=== PATIENT | male | born 1930 | race Caucasian/White ===

== ENCOUNTER 2019-01-07 14:35 | Inpatient (IN) | payer MEDICARE, BC ==
[~2019-01-07] VITALS: Ht 185.4 cm; Wt 93.0 kg
--- NOTE | 2019-01-07 14:35 | NUR ---
IV LINE ESTABLISHED, LABS DRAWNED AND SENT TO LAB.
--- NOTE | 2019-01-07 14:35 | NUR ---
PT BIB [facility],BECAME UNRESPONSIVE AFTER GETTING INTO THE CAR AFTER HAVING LUNCH, PT ARRIVED ON CIPAP NOTED RESPIRATORY DISTRESS, RT AT BEDSIDE FOR POSSIBLE INTUBATION AND [facility], INCH VENT SET UP, DR. TILLMAN AT BEDSIDE FOR EVALUATION, HOOKED TO MONITOR, KEPT RESTED AND COMFORTABLE, WILL CONTINUE TO MONITOR.
--- NOTE | 2019-01-07 14:39 | NUR ---
ETOMIDATE 20MG AND ROCURONIUM 80MG IVP PUSH GIVEN VERBAL ORDERED BY FOR SEDATION FOR ET TUBE INSERTION.
--- NOTE | 2019-01-07 14:40 | NUR ---
ET TUBE INSERTED SIZE 7.5 AND 24 AT THE LIP, POSITIVE COLOR CHANGE.
[2019-01-07] MEDS ORDERED: PROPOFOL 100 ML ONE (14:42)
--- NOTE | 2019-01-07 14:45 | NUR ---
ANDRE CATH INSERTED AND URINE SPECIMEN COLLECTED AND SENT TO LAB.
[2019-01-07 14:52] LABS: BASOPHILS % (AUTO) 0.5 % (0.0-2.0); EOSINOPHILS % (AUTO) 1.6 % (0.0-6.0); HEMATOCRIT 40 % (39-51); LYMPHOCYTES # (AUTO) 1.6 /CMM (0.8-4.8); LYMPHOCYTES % (AUTO) 15.2 % (20.0-44.0); MEAN CORPUSCULAR HGB CONC 33 g/dl (31.0-36.0); MEAN CORPUSCULAR VOLUME 98 fL (80-96); MONOCYTES # (AUTO) 1.1 /CMM (0.1-1.30); MONOCYTES % (AUTO) 10.3 % (2.0-12.0); NEUTROPHILS # (AUTO) 7.4 /CMM (1.8-8.9); NEUTROPHILS % (AUTO) 72.4 % (43.0-81.0); PLATELET COUNT (AUTO) 193 /CMM (150-450); WHITE BLOOD COUNT (AUTO) 10.2 K/uL (4.3-11.0)
[2019-01-07 14:56] LABS: CALCIUM, SERUM 9.2 mg/dL (8.5-10.1); CARBON DIOXIDE 23 mmol/L (21-32); CHLORIDE 107 mmol/L (98-107); CREATININE 1.4 mg/dL (0.6-1.3); GLUCOSE 220 mg/dL (74-106); POTASSIUM 4.6 mmol/L (3.5-5.1); SODIUM SERUM 140 mmol/L (136-145); UREA NITROGEN, BLOOD 24 mg/dL (7-18)
[2019-01-07 14:59] VITALS: BP 134/84
[2019-01-07] MEDS ORDERED: FESO8TAB PO (15:00)
[2019-01-07] MEDS ORDERED: PROPOFOL 100 ML IV PRN (15:00)
[2019-01-07] MEDS ORDERED: METO25TA20 PO (15:00)
[2019-01-07] MEDS ORDERED: TRAV5DRO EACHEYE (15:00)
[2019-01-07] MEDS ORDERED: SIMV20TA6 PO (15:00)
[2019-01-07] MEDS ORDERED: LANS30CA56 PO (15:00)
[2019-01-07] MEDS ORDERED: TEMA15CA PO (15:00)
--- NOTE | 2019-01-07 15:00 | NUR ---
ICU BED GIVEN 258
[2019-01-07 15:01] LABS: ALANINE AMINOTRANSFERASE 31 U/L (12-78); ALBUMIN 3.6 g/dL (3.4-5.0); ALKALINE PHOSPHATASE 109 U/L (46-116); ASPARTATE AMINOTRANSFERASE 23 U/L (15-37); BILIRUBIN,DIRECT 0.3 mg/dL (0.0-0.2); BILIRUBIN,TOTAL 1.2 mg/dL (0.2-1.0); TOTAL PROTEIN, SERUM 7.5 g/dL (6.4-8.2)
--- NOTE | 2019-01-07 15:02 | NUR ---
RT NOTE INTUBATED PT PER MD TILLMAN ORDER. 7.5 ETT 24 CM AT LIP. CUFF INFLATED. ETT SECURE. VENTILATOR SETTINGS FOLLOW AC 20 600 50% +0. ALARMS SET PER PROTOCOL AND AUDIBLE. VENT PLUGGED IN TO RED OUTLET. AMBU BAG AT BED SIDE. Addendum: 01/07/19 at 1505 by MARAL WILLS RT Amended: Links added.
[2019-01-07 15:15] LABS: APPEARANCE,URINE Clear (CLEAR); BILIRUBIN,URINE SMALL (NEGATIVE); BLOOD, URINE Moderate Ery/uL (NEGATIVE); COLOR,URINE Yellow (YELLOW); KETONES,URINE Trace (NEGATIVE); LEUKOCYTE ESTERASE ,URINE Negative (NEGATIVE); NITRITE, URINE Negative (NEGATIVE); PH,URINE 5.5 (5.0-8.0); PROTEIN,URINE >=300 mg/dl (NEGATIVE); UGLUCOSE Negative (NEGATIVE); UROBILINOGEN,URINE 0.2 EU/dL (0.2)
[2019-01-07 15:24] LABS: BACTERIA,URINE 1+ /HPF (None Seen); SQUAMOUS EPITHELIAL CELL,UR None Seen /HPF (None Seen); WBC,URINE 0-2 /HPF (0-3)
--- NOTE | 2019-01-07 15:25 | NUR ---
BULKER AT BEDSIDE FOR XRAY.
--- NOTE | 2019-01-07 15:29 | NUR ---
DR. ALVA AT BEDSIDE FOR EVAL.
[2019-01-07] MEDS ORDERED: PIPERACILLIN /TAZOBACTAM 3.375 G in IV D5W 50 ML IV STA (15:50)
[2019-01-07] MEDS ORDERED: IV NS 0.9% 1,000 ML BAG IV ONE (16:00)
[2019-01-07 16:01] LABS: ABG BASE EXCESS -0.6 mmol/L; ABG OXYGEN SATURATION 96.1 % (92.0-98.5); ABG PCO2 36.7 mmHg (35.0-45.0); ABG PH 7.424 (7.350-7.450); ABG PO2 94.5 mmHg (75.0-100.0); AaDO2 220.7 mmHg; COHb 0.4 % (0.5-1.5); MetHb 0.6 % (0.0-1.5); O2Hb 95.1 % (94.0-97.0); PEEP,BG 0 cm H2O; SITE, ABG Right Radial; VENT MODE, BG AC 20 600 50% +0; VT, ABG 600 mL
[2019-01-07] MEDS ORDERED: HYDROMORPHONE 1 MG/1 ML DISP.SYRIN IV STA (16:17)
[2019-01-07] MEDS ORDERED: ROCURONIUM BROMIDE 50 MG/5 ML IV ONE ×2 (16:30→16:31)
[2019-01-07] MEDS ORDERED: MAG HYDROX/AL HYDROX/SIMETH 30 ML UDC PO PRN (16:30)
[2019-01-07] MEDS ORDERED: VANCOMYCIN 1 GM in IV NS 0.9% 250 ML IV SCH (16:30)
[2019-01-07] MEDS ORDERED: ACETAMINOPHEN 325 MG TABLET PO PRN (16:30)
[2019-01-07] MEDS ORDERED: ETOMIDATE 2 MG/ML VIAL IV ONE ×2 (16:30→16:31)
[2019-01-07] MEDS ORDERED: HYDROCODONE/APAP 5/325MG 1 EACH TABLET PO PRN (16:30)
[2019-01-07] MEDS ORDERED: ONDANSETRON HCL/PF 4 MG/2 ML VIAL IVP PRN (16:30)
[2019-01-07] MEDS ORDERED: MAGNESIUM HYDROXIDE 30 ML UDC PO PRN (16:30)
[2019-01-07] MEDS ORDERED: Z GUARD REMEDY 2 OZ OINT TP PRN (16:30)
[2019-01-07] MEDS ORDERED: VECURONIUM 10 MG VIAL IV ONE (17:00)
[2019-01-07] MEDS ORDERED: DEXTROSE 50%-WATER 50 ML DISP.SYRIN IV PRN (17:00)
[2019-01-07] MEDS ORDERED: HYDROMORPHONE 1 MG/1 ML DISP.SYRIN ONE (17:04)
--- NOTE | 2019-01-07 17:06 | NUR ---
CALLED RT FOR SUCTION
--- NOTE | 2019-01-07 17:19 | NUR ---
CALLED [facility] TO HAVE HEAD CT READ
[2019-01-07] MEDS ORDERED: NOREPINEPHRINE 8 MG in IV D5W 500 ML IV PRN (17:30)
[2019-01-07] MEDS ORDERED: VANCOMYCIN 1 GM in IV D5W 250 ML IV ONE (17:30)
--- NOTE | 2019-01-07 17:51 | NUR ---
VECURONIUM 9MG IVP GIVEN ORDERED BY .
--- NOTE | 2019-01-07 17:52 | NUR ---
DR. TILLMAN AT BEDSIDE FOR CENTRAL LINE INSERTION.
[2019-01-07] MEDS: BLOOD SUGAR DIAGNOSTIC 1 EACH STRIP IN SCH (18:00)
--- NOTE | 2019-01-07 18:09 | NUR ---
REPORT GIVEN TO CONOR HOANG FOR ELIA, PT IS ONGOING LEVOPHED AT 10MCG TITRATE TO EFFECT.
[2019-01-07] MEDS ORDERED: ASPIRIN 81 MG TAB.CHEW PO STA (18:34)
[2019-01-07 18:45] VITALS: BP 141/55
[2019-01-07 20:00] VITALS: BP 144/88
[2019-01-07] MEDS: INSULIN REGULAR, HUMAN 100 UNIT/ML 3 ML VIAL SQ PRN (20:42)
[2019-01-07 21:01] VITALS: BP 101/53
[2019-01-07] MEDS: IV NS 0.9% 1,000 ML IV PRN (21:12)
[2019-01-07] MEDS: NOREPINEPHRINE 8 MG in IV D5W 500 ML IV PRN (22:40)
[2019-01-07] MEDS: PROPOFOL 100 ML IV PRN (22:44)
[2019-01-07 23:00] VITALS: BP 107/62
[2019-01-07 23:34] VITALS: BP 108/63
[2019-01-08] VITALS (50 sets, daily range): BP systolic 81–142; BP diastolic 38–73
[2019-01-08] MEDS: INSULIN REGULAR, HUMAN 100 UNIT/ML 3 ML VIAL SQ PRN ×2 (01:04→05:54)
[2019-01-08] MEDS: PIPERACILLIN /TAZOBACTAM 4.5 G in IV D5W 50 ML IV SCH ×5 (01:05→23:07)
[2019-01-08] MEDS: IV NS 0.9% 1,000 ML IV PRN ×3 (05:03→20:17)
[2019-01-08] MEDS: BLOOD SUGAR DIAGNOSTIC 1 EACH STRIP IN SCH ×5 (05:44→23:47)
[2019-01-08 06:31] LABS: BASOPHILS # (AUTO) 0.1 /CMM (0.0-0.2); BASOPHILS % (AUTO) 0.4 % (0.0-2.0); EOSINOPHILS % (AUTO) 0.1 % (0.0-6.0); HEMATOCRIT 32 % (39-51); HEMOGLOBIN 10.9 g/dL (13.5-17.5); LYMPHOCYTES # (AUTO) 0.5 /CMM (0.8-4.8); LYMPHOCYTES % (AUTO) 4.2 % (20.0-44.0); MEAN CORPUSCULAR HGB CONC 34 g/dl (31.0-36.0); MEAN CORPUSCULAR VOLUME 94 fL (80-96); MONOCYTES # (AUTO) 1.1 /CMM (0.1-1.30); MONOCYTES % (AUTO) 8.8 % (2.0-12.0); NEUTROPHILS # (AUTO) 10.7 /CMM (1.8-8.9); NEUTROPHILS % (AUTO) 86.5 % (43.0-81.0); PLATELET COUNT (AUTO) 157 /CMM (150-450); RED BLOOD CELL COUNT(AUTO) 3.38 MIL/uL (4.5-6.0); WHITE BLOOD COUNT (AUTO) 12.4 K/uL (4.3-11.0)
[2019-01-08] MEDS: PROPOFOL 100 ML IV PRN ×2 (06:55→17:55)
[2019-01-08 06:57] LABS: CHOLESTEROL 99 mg/dL (<200); HDL CHOLESTEROL 54 mg/dL (40-60); LDL 45 mg/dL (0-99); TRIGLYCERIDES 53 mg/dL (30-150)
[2019-01-08 07:11] LABS: CALCIUM, SERUM 8.3 mg/dL (8.5-10.1); CARBON DIOXIDE 22 mmol/L (21-32); CHLORIDE 111 mmol/L (98-107); CREATININE 1.1 mg/dL (0.6-1.3); GLUCOSE 121 mg/dL (74-106); MAGNESIUM 1.9 mg/dL (1.8-2.4); PHOSPHORUS 3.5 mg/dL (2.5-4.9); SODIUM SERUM 146 mmol/L (136-145); UREA NITROGEN, BLOOD 22 mg/dL (7-18)
--- NOTE | 2019-01-08 07:25 | NUR ---
WIND ENERGY ENGINEER OPENING NOTES RECEIVED REPORT FROM PM NURSE.PATIENT IN BED INTUBATED ETT @7.5 LIP LEVEL 23,ON PROPOFOL DRIP, RUNNING AT 10MCG/KG/MIN, MILD AGITATION NOTED. NO DISTRESS NOTED. BREATHING EVEN AND UNLABORED. VENT SETTINGS WELL TOLERATED. S/S OF PAIN OR DISCOMFORT. FC PATENT AND INTACT DRAINING CLEAR YELLOW WITH NO FOUL ODOR URINE.R FEMORAL CENTRAL LINE AND IV ON RW AND LAC,INTACT AND PATENT.ON TELE MONITOR SR.BED IS LOW AND IN LOCKED POSITION.CALL LIGHT IN REACH.SRX3.WILL CONTINUE TO MONITOR.
--- NOTE | 2019-01-08 07:26 | NUR ---
RN NOTES RECEIVED PATIENT IN BED ON PROFONOL DRIP, RUNNING AT 10MCG/KG/MIN, TOLERATING WELL. NO DISTRESS NOTED. BREATHING EVEN AND UNLABORED. VENT SETTINGS WELL TOLERATED. NO PHYSICAL MANIFESTATION OF PAIN OR DISCOMFORT. FC PATENT AND INTACT DRAINING CLEAR YELLOW WITH NO FOUL ODOR URINE. KEPT CLEAN AND DRY. ENDORSED TO AM SHIFT FOR CONTINUITY OF CARE.
--- NOTE | 2019-01-08 09:30 | NUR ---
DAMPER WORKER NOTE SEEN BY ,UPDATED ABOUT PATIENT CONDITION.GOT ORDER TO GET INFORMATION FROM SKYLER RIVAS. GENNY SIGNED FOR APPROVAL FAXED TO [facility].WILL CONTINUE TO MONITOR.
[2019-01-08] MEDS: ENOXAPARIN SODIUM 40 MG/0.4 ML DISP.SYRIN SQ SCH (10:25)
--- NOTE | 2019-01-08 12:00 | NUR ---
PLASMA CENTER TECHNICIAN NOTE SEEN BY UPDATED ABOUT PATIENT CONDITION WITH MORE PVC WITH COUPLETS AND HR DROPS TO 40'S IN BETWEEN.ADVISED TO CONTINUE TO MONITOR.
[2019-01-08] MEDS: NOREPINEPHRINE 8 MG in IV D5W 500 ML IV PRN (17:54)
--- NOTE | 2019-01-08 19:19 | NUR ---
RIM ROLLER SETTER CLOSING NOTES .PATIENT IN BED INTUBATED ETT @7.5 LIP LEVEL 23,ON PROPOFOL DRIP, RUNNING AT 10MCG/KG/MIN,SEDATED. NO DISTRESS NOTED. BREATHING EVEN AND UNLABORED. VENT SETTINGS WELL TOLERATED. S/S OF PAIN OR DISCOMFORT. FC PATENT AND INTACT DRAINING CLEAR YELLOW WITH NO FOUL ODOR URINE.R FEMORAL CENTRAL LINE AND IV ON RW AND LAC,INTACT AND PATENT.ON TELE MONITOR SR WITH PVC HR 62.ON B SOFT RESTRAINT.LEVO @2MCG/MIN.BED IS LOW AND IN LOCKED POSITION.CALL LIGHT IN REACH.SRX3.ENDORSED TO PM NURSE FOR ELIA.
--- NOTE | 2019-01-08 20:00 | NUR ---
MARKETING MGR - NOTES - RECEIVED PT IN BED, INTUBATED ETT 7.02/22 AT [facility], ON PROPOFOL DRIP RUNNING AT 10MCG/KG/MIN. NO DISTRESS NOTED. BREATHING EVEN AND UNLABORED. VENT SETTINGS WELL TOLERATED. PT IS IN SINUS RHYTHM HR 60S, WITH OCCASIONAL PVCS AND PAUSES, PT IS ON LEVO 2 MCG. NO S/S OF PAIN OR DISCOMFORT. FC PATENT AND INTACT DRAINING CLEAR YELLOW WITH NO FOUL ODOR URINE. PT HAS A R FEMORAL CENTRAL LINE, R WRIST 18G, L AC 20G IV, INTACT AND PATENT. BED IS LOW AND IN LOCKED POSITION. CALL LIGHT IN REACH. SRX3. WILL CONTINUE TO MONITOR.
--- NOTE | 2019-01-08 21:00 | NUR ---
PT FAMILY AT BEDSIDE TO VISIT, INCLUDING PT , DAUGHTER AND SON IN LAW, UPDATED ON PT CONDITION AND PLAN OF CARE
[2019-01-09] VITALS (44 sets, daily range): BP systolic 90–143; BP diastolic 47–82
[2019-01-09] MEDS: PROPOFOL 100 ML IV PRN (02:17)
[2019-01-09] MEDS: IV NS 0.9% 1,000 ML IV PRN ×3 (04:32→22:22)
[2019-01-09 04:34] LABS: BASOPHILS % (AUTO) 0.3 % (0.0-2.0); EOSINOPHILS % (AUTO) 2.6 % (0.0-6.0); HEMATOCRIT 31 % (39-51); HEMOGLOBIN 10.4 g/dL (13.5-17.5); LYMPHOCYTES % (AUTO) 10.6 % (20.0-44.0); MEAN CORPUSCULAR HGB CONC 34 g/dl (31.0-36.0); MEAN CORPUSCULAR VOLUME 94 fL (80-96); MONOCYTES # (AUTO) 0.8 /CMM (0.1-1.30); MONOCYTES % (AUTO) 8.9 % (2.0-12.0); NEUTROPHILS # (AUTO) 7.1 /CMM (1.8-8.9); NEUTROPHILS % (AUTO) 77.6 % (43.0-81.0); PLATELET COUNT (AUTO) 139 /CMM (150-450); RED BLOOD CELL COUNT(AUTO) 3.24 MIL/uL (4.5-6.0); WHITE BLOOD COUNT (AUTO) 9.1 K/uL (4.3-11.0)
[2019-01-09 05:05] LABS: ALANINE AMINOTRANSFERASE 43 U/L (12-78); ALBUMIN 2.6 g/dL (3.4-5.0); ALKALINE PHOSPHATASE 83 U/L (46-116); ASPARTATE AMINOTRANSFERASE 23 U/L (15-37); BILIRUBIN,TOTAL 1.5 mg/dL (0.2-1.0); CALCIUM, SERUM 8.1 mg/dL (8.5-10.1); CARBON DIOXIDE 24 mmol/L (21-32); CHLORIDE 112 mmol/L (98-107); GLUCOSE 97 mg/dL (74-106); PHOSPHORUS 2.8 mg/dL (2.5-4.9); POTASSIUM 3.5 mmol/L (3.5-5.1); SODIUM SERUM 146 mmol/L (136-145); TOTAL PROTEIN, SERUM 5.8 g/dL (6.4-8.2); UREA NITROGEN, BLOOD 19 mg/dL (7-18)
[2019-01-09] MEDS: PIPERACILLIN /TAZOBACTAM 4.5 G in IV D5W 50 ML IV SCH (05:30)
[2019-01-09] MEDS: BLOOD SUGAR DIAGNOSTIC 1 EACH STRIP IN SCH ×3 (05:41→18:14)
--- NOTE | 2019-01-09 07:02 | NUR ---
RT Pt received orally intubated with a 7.5 ETT secured at 23cm at the lip line. Pt is currently sedated at this time. Vent alarms are set and audible with BVM by bedside. DIRECTOR TALENT cuff pressure noted. Vent is plugged into red outlet. Pt sx'd moderate thick pale yellow secretions. No respiratory distress noted at this time, will continue to monitor. Addendum: 01/09/19 at 0917 by FELICIA FINE RT Amended: Links added.
--- NOTE | 2019-01-09 07:30 | NUR ---
RN NOTES RECEIVED PT IN BED, SEDATED, INTUBATED WITH ETT 7.02/22 AT [facility]. TOLERATING CURRENT VENT SETTING WELL. NOT ON ANY FORM OF DISTRESS. BREATHING EVEN AND UNLABORED. PATIENT WITH NGT IN PLACE, CLAMP AT THIS TIME. PATIENT SINUS RHYTHM HR ON THE 60S ON THE MONITOR. PATIENT WITH R FEMORAL CENTRAL LINE, R WRIST 18G, L AC 20G IV, ALL IN PLACE AND INTACT, PATIENT UPON FLUSHING ON PROPOFOL DRIP RUNNING AT 20MCG/KG/MIN AND NS AT 75CC/HR. PATIENT WITH BILATERAL RESTRAINTS: REMOVED TO ACCESS; SKIN INTACT WITH NO DISCOLORATION, PULSES PALPABLE- WILL REPLACE WHEN NECESSARY. SAFETY MEASURES OBSERVED AND MAINTAINED, BED IN LOW AND IN LOCKED POSITION. SRX3. CALL LIGHT PLACED WITHIN IN REACH. WILL CONTINUE TO MONITOR PATIENT CLOSELY.
--- NOTE | 2019-01-09 07:35 | NUR ---
RN NOTES STARTED TO LOWER DOWN DOSAGE OF PROPOFOL ADMINISTRATION TO AWAKEN PATIENT IN LIEU OF WEANING HIM OFF WITH THE CURRENT VENT SETTINGS. PATIENT KEPT MONITORED CLOSELY
--- NOTE | 2019-01-09 08:32 | NUR ---
RT Pt completely off sedation, pt is awake and able to follow commands. Weaning trial initiated per Dr. Harry orders, pt tolerating well at this time. No respiratory distress noted. Addendum: 01/09/19 at 0917 by FELICIA FINE RT Amended: Links added.
[2019-01-09] MEDS ORDERED: DC PROPOFOL WHEN EXTUBATED XX PRN (09:00)
[2019-01-09 09:47] LABS: ABG BASE EXCESS -3.3 mmol/L; ABG OXYGEN SATURATION 97.9 % (92.0-98.5); ABG PCO2 34.3 mmHg (35.0-45.0); ABG PH 7.401 (7.350-7.450); ABG PO2 144.3 mmHg (75.0-100.0); AaDO2 101.5 mmHg; COHb 0.3 % (0.5-1.5); O2Hb 96.6 % (94.0-97.0); PEEP,BG 5 cm H2O; SITE, ABG Right Radial; VENT MODE, BG SIMV 4 / PS 15; VT, ABG 600 mL
[2019-01-09] MEDS: ENOXAPARIN SODIUM 40 MG/0.4 ML DISP.SYRIN SQ SCH ×2 (10:00→10:17)
--- NOTE | 2019-01-09 10:00 | NUR ---
RN NOTES LOVENOX HELD DUE TO PATIENT LOW PLATELET LEVEL AND SCHEDULED SURGERY AT 1300 TODAY.
--- NOTE | 2019-01-09 10:20 | NUR ---
RT Pt extubated per Dr. Harry orders. Pt placed on 4L nasal cannula tolerating well. No SOB or respiratory distress noted at this time. Dahiana RN notified and aware. Addendum: 01/09/19 at 1039 by FELICIA FINE RT Amended: Links added.
[2019-01-09] MEDS: PIPERACILLIN /TAZOBACTAM 3.375 G in IV D5W 100 ML IV SCH ×2 (12:14→19:39)
--- NOTE | 2019-01-09 12:50 | NUR ---
RN NOTES DR HILL AT BEDSIDE FOR THE PATIENT
[2019-01-09] MEDS ORDERED: FENTANYL PF 100MCG/2ML AMPUL ONE (13:00)
--- NOTE | 2019-01-09 13:10 | NUR ---
RN NOTES PATIENT PICKED UP BY THE OR TEAM. PATIENT ALERT AND ORIENTED, ON OXYGEN SUPPORT VIA NASAL CANNULA AT 3 LPM, SATING 95%, TOLERATING WELL. PATIENT ACCOMPANIED BY THE ON TRANSPORT
[2019-01-09] MEDS ORDERED: LIDOCAINE HCL/PF 1% 30 ML SDV ONE (13:31)
--- NOTE | 2019-01-09 14:40 | NUR ---
RN NOTES PATIENT BACK FROM OR, AWAKE AND ORIENTED X1-2, ABLE TO COMMUNICATE AND RESPOND APPROPRIATELY, NOT ON ANY FORM OF DISTRESS, STILL ON PREVIOUSLY ORDERED OXYGEN SUPPLEMENTATION, SATING FINE, HOB AT 30 DEGREE ANGLE, WITH SPLINTS ON THE LEFT ARM, ARM KEPT ELEVATED WITH PILLOW. SITE COVERED IN DRY DRESSING WITH CLEAR DRESSING ON TOP, INTACT, NO BLEEDING NOR DRAINAGE NOTED AT THIS TIME. PATIENT KEPT COMFORTABLE AND WARMTH. SAFETY MEASURES OBSERVED AND KEPT IN PLACE. CALL LIGHT PLACED WITHIN REACH. PATIENT LOOKING FOR THE .
--- NOTE | 2019-01-09 18:49 | NUR ---
RN CLOSING NOTES PT A/OX-1. ON 02 VIA NC 3LPM. NO SOB NOTED. NO RESPIRATORY DISTRESS NOTED. DENIES AY PAIN. IV LINES IN PLACE. IVF INFUSING. CIARRA,RN GAVE REPORT AT 1800 AND TOOK OVER PT'S CARE. PT CLEAN AND DRY. PT COMFORTABLE. CALL LIGHT WITHIN REACH. WILL ENDORSE FOR CONTINUITY OF CARE.
--- NOTE | 2019-01-09 19:55 | NUR ---
PT NOTED WITH SMALL OPEN WOUND UNDERNEATH MEPILEX ON SACRUM MEASURING 0.5 CM X 0.5 CM X 0, PT CLEANED PAT DRY, APPLY Z GUARD AND MEPILEX
--- NOTE | 2019-01-09 20:00 | NUR ---
CLIENT SUCCESS SPECIALIST - NOTES - PT A/OX-1-2. ON 02 VIA AZ 3LPM. NO SOB NOTED. NO RESPIRATORY DISTRESS NOTED. DENIES AY PAIN. IV LINES IN PLACE. IVF INFUSING. PT CLEAN AND DRY. PT COMFORTABLE. CALL LIGHT WITHIN REACH. WILL CONTINUE TO MONITOR.
[2019-01-10] VITALS (16 sets, daily range): BP systolic 110–149; BP diastolic 61–86
[2019-01-10] MEDS: BLOOD SUGAR DIAGNOSTIC 1 EACH STRIP IN SCH ×4 (00:23→18:34)
[2019-01-10] MEDS: PIPERACILLIN /TAZOBACTAM 3.375 G in IV D5W 100 ML IV SCH ×3 (04:10→20:54)
[2019-01-10 04:38] LABS: BASOPHILS % (AUTO) 0.2 % (0.0-2.0); EOSINOPHILS % (AUTO) 1.4 % (0.0-6.0); HEMATOCRIT 32 % (39-51); LYMPHOCYTES # (AUTO) 0.7 /CMM (0.8-4.8); LYMPHOCYTES % (AUTO) 6.9 % (20.0-44.0); MEAN CORPUSCULAR HGB CONC 34 g/dl (31.0-36.0); MEAN CORPUSCULAR VOLUME 95 fL (80-96); MONOCYTES # (AUTO) 0.8 /CMM (0.1-1.30); MONOCYTES % (AUTO) 7.7 % (2.0-12.0); NEUTROPHILS # (AUTO) 8.2 /CMM (1.8-8.9); NEUTROPHILS % (AUTO) 83.8 % (43.0-81.0); PLATELET COUNT (AUTO) 140 /CMM (150-450); RED BLOOD CELL COUNT(AUTO) 3.39 MIL/uL (4.5-6.0); WHITE BLOOD COUNT (AUTO) 9.8 K/uL (4.3-11.0)
[2019-01-10 04:54] LABS: ALANINE AMINOTRANSFERASE 36 U/L (12-78); ALBUMIN 2.8 g/dL (3.4-5.0); ALKALINE PHOSPHATASE 106 U/L (46-116); ASPARTATE AMINOTRANSFERASE 19 U/L (15-37); BILIRUBIN,TOTAL 1.4 mg/dL (0.2-1.0); CALCIUM, SERUM 8.2 mg/dL (8.5-10.1); CARBON DIOXIDE 24 mmol/L (21-32); CHLORIDE 111 mmol/L (98-107); CREATININE 1.1 mg/dL (0.6-1.3); GLUCOSE 115 mg/dL (74-106); MAGNESIUM 2.1 mg/dL (1.8-2.4); POTASSIUM 3.5 mmol/L (3.5-5.1); SODIUM SERUM 145 mmol/L (136-145); TOTAL PROTEIN, SERUM 6.3 g/dL (6.4-8.2); UREA NITROGEN, BLOOD 14 mg/dL (7-18)
[2019-01-10] MEDS: IV NS 0.9% 1,000 ML IV PRN (05:40)
--- NOTE | 2019-01-10 06:27 | NUR ---
PT RUDOLPH CRUMP AT BEDSIDE, UPDATED ON PT CONDITION AND PLAN OF CARE
--- NOTE | 2019-01-10 07:30 | NUR ---
RN NOTE: RECEIVED PATIENT IN BED, AWAKE, ALERT AND VERBALLY RESPONSIVE. PATIENT WAS ON O2 3L/MIN VIA NC SATURATING 95-98%. DENIED ANY PAIN. NOTED WITH A (R) NARE NGT CLAMPED. HOB ELEVATED AT 35 DEGREE. (L) CHEST PACEMAKER WAS NOTED IN PLACED WITH DRY GAUZE AND TRANSPARENT DRESSING. ANDRE CATHETER IN PLACED NOTED WITH YELLOW URINE. (L) AC IV SITE NOTED PATENT AND INTACT AND FLUSHING WELL. (R) FEMORAL PICC LINE TRIPLE LUMEN CATHETER IN PLACED NOTED WITH CLEAN AND DRY DRESSING FLUSHING WELL. BED ALARMED LOCKED AT ALL TIMES AND PLACED ON LOWEST POSITION. CALL LIGHT WITHIN REACH. NEEDS ANTICIPATED.
--- NOTE | 2019-01-10 08:11 | NUR ---
WOUND CARE CONSULT: PT PRESENTS WITH INCONTINENCE ASSOCIATED SKIN DAMAGE TO GLUTEAL CREASE AREA. AREA IS VERY MOIST. RECOMMENDATIONS MADE FOR SKIN CARE AND PROTECTION. DISCUSSED WITH NURSING STAFF. FIRST STEP LOW AIRLOSS MATTRESS ORDERED. WILL SEE PRN. CURRENT CARO SCORE IS 12. PT NOTED TO HAVE LEFT ARM BRUISING WITH DRY ABRASIONS AND SLING IN PLACE, PRESENT ON ADMISSION. MD IN AGREEMENT WITH PLAN OF CARE. Addendum: 01/10/19 at 0813 by CYNTHIA WILD WNDNU Amended: Links added.
[2019-01-10] MEDS: ENOXAPARIN SODIUM 40 MG/0.4 ML DISP.SYRIN SQ SCH (09:43)
--- NOTE | 2019-01-10 11:31 | NUR ---
RN NOTE: RECEIVED A VERBAL ORDER FROM DR. Everett RODGERS ABOUT DISCONTINUING THE NGT, ANDRE CATHETER AND (R) FEMORAL TRIPLE LUMEN CATHETER LINE. ORDERS, NOTED AND CARRIED OUT. PATIENT AND FAMILY WERE MADE AWARE AND THEY ALL AGREED TO IT.
--- NOTE | 2019-01-10 12:05 | NUR ---
RN NOTE: ANDRE CATHETER, NGT AND (R) FEMORAL TRIPLE LUMEN CATHETER WAS REMOVED. PATIENT TOLERATED IT WELL. NOT ON ANY FORM OF DISTRESS. ALL TUBINGS FOR THE ANDRE CATHETER, NGT AND (R) FEMORAL TRIPLE LUMEN CATHETER WERE NOTED INTACT UPON REMOVAL. NO BLEEDING NOTED ON THE (R) FEMORAL CATHETER SITE NOTED AND PRESSURE WAS PLACED UPON REMOVAL COVERED WITH DRY GAUZE AND SECURED WITH TAPE.
--- NOTE | 2019-01-10 12:10 | NUR ---
RN NOTE: PATIENT'S BLOOD SUGAR WAS CHECKED AND IT WAS 144. PER PATIENT'S DAUGHTER AND , HE DOES NOT TAKE INSULIN AT HOME. PATIENT WAS DOWNGRADED TO [facility] ROOM 107 AND BEDSIDE REPORT WAS GIVEN TO KEVIN ROD RN. INSULIN WAS NOT GIVEN AND WAS REPORTED TO KEVIN ROD RN FOR CONTINUITY OF CARE. PATIENT DID NOT EAT LUNCH YET AT THIS TIME AND LUNCH TRAY WAS SENT WITH THE PATIENT UPON TRANSPORT TO ROOM 107 AND ALL BELONGINGS WERE WITH THE DAUGHTER AND PATIENT'S .
--- NOTE | 2019-01-10 13:30 | NUR ---
MS RN NOTES RECEIVED REPORT FROM CONOR WALTERS. PT TRANSFERRED TO [facility] FLOOR WITH BELONGINGS. FAMILY AT BEDSIDE. PT ON NC AT 4-6LPM. SLIGHT WHEEZING NOTED. NOTIFIED RT FOR PRN BREATHING TX. WILL CONT TO MONITOR.
[2019-01-10] MEDS: ALBUTEROL FS 2.5 MG/3 ML VIAL.NEB NEB PRN (13:55)
[2019-01-10] MEDS: FUROSEMIDE 40 MG/4 ML VIAL IV SCH ×2 (15:52→20:54)
[2019-01-10] MEDS: POTASSIUM CHLORIDE 20 MEQ TAB.PRT.SR PO SCH ×4 (17:23→19:51)
--- NOTE | 2019-01-10 19:00 | NUR ---
MS RN END OF SHIFT NOTES PT ENDORSED TO CONOR FARMER FOR ELIA. PT ASLEEP IN BED, WITH AT BEDSIDE. ALL TX RENDERED ORDERED. FAMILY UPDATED WITH POC. PT'S VS STABLE. BED IN LOCKED/LOWEST POSITION. CALL LIGHT IN REACH.
--- NOTE | 2019-01-10 19:35 | NUR ---
MS/RN NOTES RECEIVED PT. LYING IN BED. PT. IS AWAKE, ALERT AND ORIENTED X 2-3. BREATHING EVEN AND UNLABORED ON 4LPM O2 VIA NC. NO SOB, RESPIRATORY DISTRESS OR COMPLAINTS OF PAIN NOTED AT THIS TIME. PT. WITH LEFT AC 20 GAUGE IV SALINE LOCK PRESENT, PATENT AND INTACT. PT. WITH FAMILY MEMBERS PRESENT AT BEDSIDE. BED LOCKED AND IN LOWEST POSITION, SIDE RAILS UP X3, BED ALARM ON, CALL LIGHT WITHIN REACH, WILL CONTINUE TO MONITOR.
[2019-01-11] MEDS: FUROSEMIDE 40 MG/4 ML VIAL IV SCH ×4 (01:13→17:00)
[2019-01-11] MEDS: ALBUTEROL FS 2.5 MG/3 ML VIAL.NEB NEB PRN (01:26)
[2019-01-11] MEDS: BLOOD SUGAR DIAGNOSTIC 1 EACH STRIP IN SCH ×4 (01:28→17:04)
[2019-01-11] MEDS: INSULIN REGULAR, HUMAN 100 UNIT/ML 3 ML VIAL SQ PRN ×2 (01:39→06:57)
[2019-01-11 04:00] VITALS: BP 122/69
[2019-01-11] MEDS: PIPERACILLIN /TAZOBACTAM 3.375 G in IV D5W 100 ML IV SCH ×3 (04:54→20:53)
--- NOTE | 2019-01-11 06:45 | NUR ---
MS/RN NOTES PT. IS LYING IN BED RESTING. BREATHING EVEN AND UNLABORED ON 5LPM O2 VIA FACE MASK. NO SOB, RESPIRATORY DISTRESS OR COMPLAINTS OF PAIN NOTED AT THIS TIME. PT. WITH LEFT AC 20 GAUGE IV SALINE LOCK PRESENT, PATENT AND INTACT. ALL PT. NEEDS MET. PT. OFFLOADED, TURNED AND REPOSITIONED Q2H AND NEEDED. PT. PRESENT AT BEDSIDE. BED LOCKED AND IN LOWEST POSITION, SIDE RAILS UP X3, BED ALARM ON, CALL LIGHT WITHIN REACH, WILL ENDORSE TO DAYSHIFT NURSE FOR CONTINUITY OF CARE.
[2019-01-11 06:48] LABS: BASOPHILS % (AUTO) 0.3 % (0.0-2.0); EOSINOPHILS % (AUTO) 0.3 % (0.0-6.0); HEMATOCRIT 35 % (39-51); HEMOGLOBIN 11.9 g/dL (13.5-17.5); LYMPHOCYTES # (AUTO) 0.7 /CMM (0.8-4.8); LYMPHOCYTES % (AUTO) 5.4 % (20.0-44.0); MEAN CORPUSCULAR HGB CONC 34 g/dl (31.0-36.0); MEAN CORPUSCULAR VOLUME 93 fL (80-96); MONOCYTES # (AUTO) 1.3 /CMM (0.1-1.30); MONOCYTES % (AUTO) 10.6 % (2.0-12.0); NEUTROPHILS # (AUTO) 10.1 /CMM (1.8-8.9); NEUTROPHILS % (AUTO) 83.4 % (43.0-81.0); PLATELET COUNT (AUTO) 154 /CMM (150-450); RED BLOOD CELL COUNT(AUTO) 3.79 MIL/uL (4.5-6.0); WHITE BLOOD COUNT (AUTO) 12.1 K/uL (4.3-11.0)
[2019-01-11 07:06] LABS: ALANINE AMINOTRANSFERASE 34 U/L (12-78); ALBUMIN 2.9 g/dL (3.4-5.0); ALKALINE PHOSPHATASE 114 U/L (46-116); ASPARTATE AMINOTRANSFERASE 20 U/L (15-37); BILIRUBIN,TOTAL 1.9 mg/dL (0.2-1.0); CALCIUM, SERUM 8.7 mg/dL (8.5-10.1); CARBON DIOXIDE 27 mmol/L (21-32); CHLORIDE 107 mmol/L (98-107); GLUCOSE 137 mg/dL (74-106); MAGNESIUM 1.9 mg/dL (1.8-2.4); PHOSPHORUS 2.9 mg/dL (2.5-4.9); POTASSIUM 3.1 mmol/L (3.5-5.1); SODIUM SERUM 146 mmol/L (136-145); UREA NITROGEN, BLOOD 13 mg/dL (7-18)
[2019-01-11 08:00] VITALS: BP 122/66
--- NOTE | 2019-01-11 08:06 | NUR ---
RN OPENING NOTES PT AWAKE AND RESTING IN BED. FAMILY AT BEDSIDE. NO COMPLAINTS OF PAIN, SOB OR DISTRESS AT THIS TIME. PT IS ON 5LPM 02 VIA FACE MASK. PT HAS LEFT AC #20 INTACT AND PATENT. SAFETY PRECAUTIONS IN PLACE BED IN LOWEST LOCKED POSITION, X2 SIDE RAILS UP AND CALL LIGHT WITHIN REACH. WILL CONTINUE TO MONITOR.
[2019-01-11] MEDS: ENOXAPARIN SODIUM 40 MG/0.4 ML DISP.SYRIN SQ SCH (09:21)
[2019-01-11] MEDS: POTASSIUM CHLORIDE 20 MEQ TAB.PRT.SR PO SCH ×3 (10:36→11:41)
--- NOTE | 2019-01-11 11:30 | NUR ---
RN NOTES PATIENT'S FAMILY REFUSED INSULIN COVERAGE FOR BLOOD SUGAR 171
[2019-01-11] MEDS: methylPREDNISolone SOD SUCC 125 MG/2ML VIAL IV SCH ×2 (13:20→17:04)
[2019-01-11 16:00] VITALS: BP_SYST 101; BP_SYST 109; BP_DIAS 55; BP_DIAS 68
--- NOTE | 2019-01-11 18:37 | NUR ---
RN NOTES PER ALTAGRACIA SALAZARUCHBHAVIKS
--- NOTE | 2019-01-11 18:58 | NUR ---
RN CLOSING NOTES PT AWAKE AND RESTING IN BED. FAMILY AT BEDSIDE. NO COMPLAINTS OF PAIN, SOB OR DISTRESS DURING THE SHIFT. PT IS ON 2LPM 02 VIA NASAL CANNULA. PT HAS LEFT AC #20 INTACT AND PATENT. SAFETY PRECAUTIONS IN PLACE BED IN LOWEST LOCKED POSITION, X2 SIDE RAILS UP AND CALL LIGHT WITHIN REACH. WILL ENDORSE TO SECRETARY BOARD OF COMMISSIONERS NURSE FOR CONTINUITY OF CARE.
--- NOTE | 2019-01-11 19:15 | NUR ---
RN OPEN NOTES RECEIVED PATIENT AWAKE IN BED WITH FAMILY AT BEDSIDE. A/O X3. NO SIGNS OF DISTRESS OR DISCOMFORT. ON 2LPM O2 VIA NC. IV ACCESS IN LAC, PATENT AND INTACT, NO SIGNS OF REDNESS OR INFILTRATION. BED IN LOW LOCKED POSITION WITH SIDE RAILS X2. CALL LIGHT WITHIN REACH. WILL CONTINUE TO MONITOR.
[2019-01-11 20:00] VITALS: BP 103/51
[2019-01-12 04:00] VITALS: BP 103/54
[2019-01-12] MEDS: PIPERACILLIN /TAZOBACTAM 3.375 G in IV D5W 100 ML IV SCH ×3 (04:24→20:24)
[2019-01-12 06:26] LABS: HEMATOCRIT 31 % (39-51); HEMOGLOBIN 10.9 g/dL (13.5-17.5); LYMPHOCYTES # (AUTO) 0.5 /CMM (0.8-4.8); LYMPHOCYTES % (AUTO) 6.1 % (20.0-44.0); MEAN CORPUSCULAR HGB CONC 36 g/dl (31.0-36.0); MEAN CORPUSCULAR VOLUME 92 fL (80-96); MONOCYTES # (AUTO) 0.3 /CMM (0.1-1.30); MONOCYTES % (AUTO) 3.5 % (2.0-12.0); NEUTROPHILS % (AUTO) 90.4 % (43.0-81.0); PLATELET COUNT (AUTO) 151 /CMM (150-450); RED BLOOD CELL COUNT(AUTO) 3.32 MIL/uL (4.5-6.0); WHITE BLOOD COUNT (AUTO) 7.7 K/uL (4.3-11.0)
--- NOTE | 2019-01-12 06:45 | NUR ---
RN CLOSING NOTES PATIENT RESTING IN BED WITH FAMILY AT BEDSIDE. A/O X3. NO SIGNS OF DISTRESS OR DISCOMFORT. ON 2LPM O2 VIA NC. IV ACCESS IN LAC, PATENT AND INTACT, NO SIGNS OF REDNESS OR INFILTRATION. ALL NEEDS MET. NO SIGNIFICANT CHANGES THROUGH THE NIGHT. PATIENT REPOSITIONED Q2H AND PRN. BED IN LOW LOCKED POSITION WITH SIDE RAILS X2. CALL LIGHT WITHIN REACH. WILL ENDORSE TO AM SHIFT FOR ELIA.
[2019-01-12 06:56] LABS: ALANINE AMINOTRANSFERASE 25 U/L (12-78); ALBUMIN 2.6 g/dL (3.4-5.0); ALKALINE PHOSPHATASE 111 U/L (46-116); ASPARTATE AMINOTRANSFERASE 15 U/L (15-37); BILIRUBIN,TOTAL 1.2 mg/dL (0.2-1.0); CALCIUM, SERUM 8.8 mg/dL (8.5-10.1); CARBON DIOXIDE 30 mmol/L (21-32); CHLORIDE 104 mmol/L (98-107); CREATININE 1.2 mg/dL (0.6-1.3); GLUCOSE 178 mg/dL (74-106); PHOSPHORUS 3.4 mg/dL (2.5-4.9); POTASSIUM 3.3 mmol/L (3.5-5.1); SODIUM SERUM 138 mmol/L (136-145); TOTAL PROTEIN, SERUM 6.7 g/dL (6.4-8.2); UREA NITROGEN, BLOOD 26 mg/dL (7-18)
--- NOTE | 2019-01-12 07:23 | NUR ---
RN MS OPENING NOTES PATIENT RESTING IN BED WITH FAMILY AT BEDSIDE. A/O X3. NO SIGNS OF DISTRESS OR DISCOMFORT. ON 1LPM O2 VIA NC. IV ACCESS IN LAC RUNNING TKO PATENT AND INTACT, NO SIGNS OF REDNESS OR INFILTRATION.SAFETY PRECAUTIONS IN PLACE BED IN LOW LOCKED POSITION WITH SIDE RAILS X2. CALL LIGHT WITHIN REACH.
[2019-01-12 08:00] VITALS: BP 104/58
[2019-01-12] MEDS: methylPREDNISolone SOD SUCC 125 MG/2ML VIAL IV SCH (09:27)
[2019-01-12] MEDS: POTASSIUM CHLORIDE 20 MEQ TAB.PRT.SR PO SCH ×3 (09:27→12:19)
[2019-01-12] MEDS: FUROSEMIDE 40 MG/4 ML VIAL IV SCH ×3 (09:27→17:13)
[2019-01-12] MEDS: ENOXAPARIN SODIUM 40 MG/0.4 ML DISP.SYRIN SQ SCH (09:28)
[2019-01-12 16:00] VITALS: BP 117/57
--- NOTE | 2019-01-12 18:16 | NUR ---
RN MS NOTES REFUSED PATIENTS DINNER TRAY.
--- NOTE | 2019-01-12 18:55 | NUR ---
RN MS CLOSING NOTES PATIENT STABLE THROUGHOUT SHIFT. NO SIGNS OR SYMPTOMS OF RESPIRATORY DISTRESS OR ACUTE PAIN NOTED. TOLERATING 1-2 LTRS NASAL CANNULA SATURATING 91-97%. OOB BED WITH PT AND FAMILY IN ROOM. TURNED AND CLEANED Q2HR APPETITE FAIR. IVF/TKO RUNNING IN LFA @ 3 ML/HR.FAMILY AND BUILDING CLEANING SUPERVISOR AT BEDSIDE THROUGHOUT THE DAY. SAFETY AND ASPIRATION PRECAUTIONS IN PLACE BED IN LOW POSITION CALL LIGHT WITHIN REACH ALL NEEDS MET WILL ENDORSE TO NOC
--- NOTE | 2019-01-12 19:49 | NUR ---
MS RN NOTES RECEIVED PT ON BED.A/O X 3 FAMILY AT BEDSIDE. ON [employer] CANNULA 2LPM NO RESPIRATORY DISTRESS NOTED. IV ACESS ON LAC G20 SALINE LOCK. HEAD OF BED ELEVATED. SIDE RAILS UP. CALL LIGHT WITHIN REACH. BED ALARM ON. WILL CONTINUE TO MONITOR PT CLOSELY.
[2019-01-12 20:00] VITALS: BP 125/72
[2019-01-13 04:00] VITALS: BP 125/73
[2019-01-13] MEDS: PIPERACILLIN /TAZOBACTAM 3.375 G in IV D5W 100 ML IV SCH ×2 (04:18→12:07)
--- NOTE | 2019-01-13 07:02 | NUR ---
MS RN NOTES NO ACUTE CHANGES NOTED DURING THE SHIFT. NO RESPIRATORY DISTRESS NOTED. WILL ENDORSE TO THE AM NURSE FOR CONTINUITY OF CARE.
--- NOTE | 2019-01-13 07:20 | NUR ---
RN MS OPENING NOTES BEDSIDE REPORT GIVEN PATIENT ASLEEP IN BED WITH CAREGIVER AT BEDSIDE. A/O X3. NO SIGNS OF DISTRESS OR DISCOMFORT. ON 1LPM O2 VIA NC. IV ACCESS IN LAC RUNNING TKO PATENT AND INTACT, NO SIGNS OF REDNESS OR INFILTRATION.SAFETY PRECAUTIONS IN PLACE BED IN LOW LOCKED POSITION WITH SIDE RAILS X2. CALL LIGHT WITHIN REACH
[2019-01-13 07:35] LABS: BASOPHILS # (AUTO) 0.1 /CMM (0.0-0.2); BASOPHILS % (AUTO) 0.5 % (0.0-2.0); HEMATOCRIT 32 % (39-51); HEMOGLOBIN 10.9 g/dL (13.5-17.5); LYMPHOCYTES # (AUTO) 0.6 /CMM (0.8-4.8); LYMPHOCYTES % (AUTO) 4.8 % (20.0-44.0); MEAN CORPUSCULAR HGB CONC 34 g/dl (31.0-36.0); MEAN CORPUSCULAR VOLUME 93 fL (80-96); MONOCYTES # (AUTO) 0.5 /CMM (0.1-1.30); NEUTROPHILS # (AUTO) 11.1 /CMM (1.8-8.9); NEUTROPHILS % (AUTO) 90.7 % (43.0-81.0); PLATELET COUNT (AUTO) 169 /CMM (150-450); RED BLOOD CELL COUNT(AUTO) 3.46 MIL/uL (4.5-6.0); WHITE BLOOD COUNT (AUTO) 12.3 K/uL (4.3-11.0)
[2019-01-13 07:45] LABS: ALANINE AMINOTRANSFERASE 40 U/L (12-78); ALBUMIN 2.6 g/dL (3.4-5.0); ALKALINE PHOSPHATASE 133 U/L (46-116); ASPARTATE AMINOTRANSFERASE 30 U/L (15-37); BILIRUBIN,TOTAL 0.8 mg/dL (0.2-1.0); CALCIUM, SERUM 8.7 mg/dL (8.5-10.1); CARBON DIOXIDE 31 mmol/L (21-32); CHLORIDE 104 mmol/L (98-107); CREATININE 1.3 mg/dL (0.6-1.3); GLUCOSE 181 mg/dL (74-106); MAGNESIUM 2.3 mg/dL (1.8-2.4); PHOSPHORUS 3.7 mg/dL (2.5-4.9); POTASSIUM 3.7 mmol/L (3.5-5.1); SODIUM SERUM 143 mmol/L (136-145); TOTAL PROTEIN, SERUM 6.8 g/dL (6.4-8.2); UREA NITROGEN, BLOOD 45 mg/dL (7-18)
[2019-01-13 08:00] VITALS: BP 129/71
[2019-01-13] MEDS ORDERED: methylPREDNISolone SOD SUCC 125 MG/2ML VIAL IV SCH (09:00)
[2019-01-13] MEDS: ENOXAPARIN SODIUM 40 MG/0.4 ML DISP.SYRIN SQ SCH (09:20)
[2019-01-13 09:34] LABS: ABG BASE EXCESS 4.3 mmol/L; ABG OXYGEN SATURATION 88.2 % (92.0-98.5); ABG PH 7.468 (7.350-7.450); ABG PO2 56.8 mmHg (75.0-100.0); COHb 0.6 % (0.5-1.5); MetHb 0.7 % (0.0-1.5); O2Hb 87.1 % (94.0-97.0); SITE, ABG Right Brachial; VENT MODE, BG ROOM AIR
--- NOTE | 2019-01-13 14:43 | NUR ---
RN MS DISCHARGE NOTES ORDERS FOR DISCHARGE. ALL EXIT CARE UTILIZED . PHOTOS TAKEN AND PLACED IN CHART. ALL RX GIVEN TO AND DAUGHTER AT BEDSIDE. VITALS FOLLOWS 120/64 HR 70 RR 18 O2 @95% ON 1 LTR. IV REMOVED CATH INTACT. ESCORTED OF UNIT IN WHEELCHAIR WITH SELF AND CHECKMAN . LEFT WITH FAMILY IN PERSONAL VEHICLE.
== END 2019-01-13 14:35 | disposition home or self-care (01) | DRG 853 ==
LOC: ER 14:35 → ICU 15:36 → MEDSG1 01-10 11:29
PROVIDERS: ADMIT Internal Medicine; ATTEND Hospitalist
PROC: 0BH17EZ Insertion of Endotracheal Airway into Trachea, Via Natural or Artificial Opening (ICD-10-PCS; 2019-01-07)
PROC: 5A09357 Assistance with Respiratory Ventilation, Less than 24 Consecutive Hours, Continuous Positive Airway Pressure (ICD-10-PCS; 2019-01-07)
PROC: 5A1945Z Respiratory Ventilation, 24-96 Consecutive Hours (ICD-10-PCS; principal; 2019-01-08)
PROC: 0JH604Z Insertion of Pacemaker, Single Chamber into Chest Subcutaneous Tissue and Fascia, Open Approach (ICD-10-PCS; 2019-01-09)
PROC: 02HK3JZ Insertion of Pacemaker Lead into Right Ventricle, Percutaneous Approach (ICD-10-PCS; 2019-01-09)
DX: A41.9 Sepsis, unspecified organism (principal); J96.01 Acute respiratory failure with hypoxia; J18.9 Pneumonia, unspecified organism; I21.A1 Myocardial infarction type 2; D68.9 Coagulation defect, unspecified; E87.2 Acidosis; N17.9 Acute kidney failure, unspecified; J98.11 Atelectasis; N39.0 Urinary tract infection, site not specified; E44.1 Mild protein-calorie malnutrition; R65.20 Severe sepsis without septic shock; E78.5 Hyperlipidemia, unspecified; I49.5 Sick sinus syndrome; Z99.81 Dependence on supplemental oxygen; Z96.653 Presence of artificial knee joint, bilateral; Z85.038 Personal history of other malignant neoplasm of large intestine; Z87.01 Personal history of pneumonia (recurrent); N40.0 Benign prostatic hyperplasia without lower urinary tract symptoms; K21.9 Gastro-esophageal reflux disease without esophagitis; Z98.890 Other specified postprocedural states; E87.6 Hypokalemia; Z79.899 Other long term (current) drug therapy; I48.91 Unspecified atrial fibrillation; I11.0 Hypertensive heart disease with heart failure; I50.9 Heart failure, unspecified; G89.29 Other chronic pain; F03.90 Unspecified dementia, unspecified severity, without behavioral disturbance, psychotic disturbance, mood disturbance, and anxiety; J84.10 Pulmonary fibrosis, unspecified; G47.33 Obstructive sleep apnea (adult) (pediatric); I44.1 Atrioventricular block, second degree
CPT/HCPCS: 31720; 36415; 36600; 70450-TC; 71045-TC; 80048-TC; 80053-TC; 80061-TC; 80076-TC; 81000-TC; 82803-TC; 82962-TC; 83605-TC; 83735-TC; 84100-TC; 84484-TC; 85025-TC; 85730-TC; 87040-TC; 87081-TC; 87086-TC; 93307-TC; 93970-TC; 94002-TC; 94003-TC; 94799-TC; 97110-TC; 97116-TC; 97530-TC; 99082-TC; A4565; A6403; G0378; J1170; J1650; J1815; J1940; J2543; J2930; J3010; J3370; J3490; J7030; J7050; J7060